=== PATIENT | male | born 1960 | race Two or more races ===

== ENCOUNTER 2020-08-17 13:43 | Emergency (ER) | payer OTHER ==
[~2020-08-17] VITALS: Ht 177.8 cm; Wt 86.2 kg
[2020-08-17] MEDS ORDERED: CARVEDILOL25 MG (13:53)
[2020-08-17] MEDS ORDERED: ACCUPRIL10 MG PO (13:54)
[2020-08-17] MEDS ORDERED: PEPCID AC20 MG PO (19:33)
[2020-08-17] MEDS ORDERED: CARAFATE1 GM PO (19:33)
== END 2020-08-17 19:41 | disposition home or self-care (01) ==
LOC: ER 13:43
DX: K29.70 Gastritis, unspecified, without bleeding (principal)

== ENCOUNTER 2021-05-27 11:04 | Outpatient (CLI) | payer OTHER ==
[~2021-05-27 11:04] MED LIST: ACCUPRIL10 MG PO; CARAFATE1 GM PO; CARVEDILOL25 MG; PEPCID AC20 MG PO
== END 2021-05-27 11:12 | disposition home or self-care (01) ==
LOC: SONOGRAMA 11:04
PROVIDERS: ATTEND Pathology Anatomic Pathology & Clinical Pathology
DX: E04.2 Nontoxic multinodular goiter (principal)